=== PATIENT | male | born 1990 | race Caucasian/White ===

== ENCOUNTER 2024-10-29 18:23 | Emergency (ER) | payer OTHER ==
[~2024-10-29] VITALS: Ht 177.8 cm; Wt 85.0 kg
[2024-10-29 18:38] VITALS: BP 117/63; PULSE 105; TEMP 100.7; O2SAT 98
[2024-10-29] MEDS ORDERED: ARIP5TAB12 PO (19:01)
[2024-10-29] MEDS ORDERED: LAMO25TA4 PO (19:01)
[2024-10-29 19:04] VITALS: RESP 17
[2024-10-29] MEDS: HYDROcodone/acetaminophen 5mg/325mg tablet PO ONE (19:04)
[2024-10-29] MEDS: ondansetron 4mg rapidly disintigrating tab PO ONE (19:04)
[2024-10-29] MEDS ORDERED: DOXY-460 PO (20:23)
[2024-10-29] MEDS ORDERED: HYDR-3965 PO (20:23)
[2024-10-29] MEDS ORDERED: ONDA-245 PO (20:23)
[2024-10-29 20:33] LABS: BILIRUBIN,URINE SMALL (Neg); CLARITY,URINE CLEAR (Clear); COLOR,URINE YELLOW (Yellow); GLUCOSE, URINE NEGATIVE (Neg); KETONES,URINE >=80 mg/dl (Neg); LEUKOCYTE ESTERASE ,URINE NEGATIVE (Neg); NITRITES, URINE NEGATIVE (Neg); OCCULT BLOOD,URINE NEGATIVE (Neg); PROTEIN,URINE 30 mg/dl (Neg); UROBILINOGEN,URINE 0.2 E.U/dL (0.2-1.0)
[2024-10-29 20:39] LABS: UA COLLECTION TYPE VOIDED
[2024-10-29 20:40] LABS: BACTERIA,URINE 1+ /HPF (Neg); MUCUS STRANDS FEW /LPF (Neg); RBC,URINE NONE SEEN /HPF (0-2); SQUAMOUS EPITHELIAL CELL,UR FEW /LPF (FEW); WBC,URINE 0-4 /HPF (0-4)
[2024-10-29] MEDS: DOXYCYCLINE 100MG CAPSULE PO STA (20:53)
== END 2024-10-29 21:20 | disposition home or self-care (01) ==
LOC: ER 18:25
DX: N45.1 Epididymitis (principal); Z88.5 Allergy status to narcotic agent
CPT/HCPCS: 76870; 81001; 93976; 99284